=== PATIENT | male | born 1995 | race Caucasian/White ===

== ENCOUNTER 2018-07-23 21:45 | Emergency (ER) | payer MEDICAID ==
[2018-07-23] MEDS ORDERED: ONDANSETRON 4 MG/2 ML VIAL ONE (21:51)
[2018-07-23] MEDS ORDERED: NS 1,000 ML IV ONE ×2 (21:57→22:32)
[2018-07-23] MEDS ORDERED: ONDANSETRON 4 MG/2 ML VIAL IVP ONE ×2 (21:57→22:49)
[2018-07-23 22:19] LABS: PLATELET COUNT 284 10^3/uL (150-400)
--- NOTE | 2018-07-23 22:38 | EDPHY ---
H & P Stated Complaint: abd pain, N/V, RLQ Time Seen by Provider: 07/23/18 22:18 HPI/ROS: HPI The patient presents with abdominal pain, nausea, vomiting, diarrhea. For the last 2 weeks patient has had intermittent sharp right-sided abdominal and flank pain which has come and gone and not cause him much distress. At noon today he had a large meal and then about 4 hr later developed diarrhea which she describes as loose stool. The diarrhea became more frequent occurring every few minutes and then he began to vomit. His diarrhea became bloody this evening and this was concerning to him so he comes into the emergency department. He does have worsening of this right-sided sharp abdominal pain which he has been dealing with for the last 2 weeks. The pain has been nearly constant and moderate in severity. He does not have any dysuria or hematuria. He has no prior history of similar symptoms.. REVIEW OF SYSTEMS 10 systems were reviewed and negative with the exception of the elements mentioned in the history of present illness. PMHx: Healthy, history of asthma Soc Hx: College student, here with friends and parents PHYSICAL General Appearance: Alert, no distress Eyes: Pupils equal and round no pallor or injection ENT, Mouth: Mucous membranes dry Respiratory: There are no retractions, lungs are clear to auscultation Cardiovascular: Tachycardic rate and regular rhythm Gastrointestinal: Abdomen is soft and tender in the right upper and lower quadrants without rebound or guarding, no masses, bowel sounds normal Neurological: A&O, moves all extremities Skin: Warm and dry, no rashes Musculoskeletal: Neck is supple non tender Extremities: symmetrical, full range of motion Psychiatric: Patient is oriented X 3, there is no agitation Source: Patient Exam Limitations: No limitations - Personal History Current Tetanus Diphtheria and Acellular Pertussis (TDAP): Yes - Medical/Surgical History Hx Asthma: Yes Hx Chronic Respiratory Disease: No Hx Diabetes: No Hx Cardiac Disease: No Hx Renal Disease: No Hx Cirrhosis: No Hx Alcoholism: No Hx HIV/AIDS: No Hx Splenectomy or Spleen Trauma: No Other PMH: hemotocrosis - Social History Smoking Status: Never smoked Constitutional: Initial Vital Signs Temperature (C) 36.4 C 07/23/18 21:48 Heart Rate 94 07/23/18 21:48 Respiratory Rate 24 H 07/23/18 21:48 Blood Pressure 125/75 H 07/23/18 21:48 O2 Sat (%) 97 07/23/18 21:48 O2 Delivery Mode Room Air Allergies/Adverse Reactions: aspirin Allergy (Verified 07/23/18 21:47) Home Medications: Medication Instructions Recorded NK [No Known Home Meds] 07/23/18 Medical Decision Making - Diagnostics Imaging Results: CT abdomen pelvis demonstrates mild splenomegaly, mesenteric adenitis, discussed with Dr. Garcia of Radiology. Differential Diagnosis: 22-year-old male who presents with nausea, vomiting, bloody diarrhea associated with right-sided abdominal pain for the last 1 day. Differential diagnosis includes appendicitis, gastroenteritis, colitis, AVM, inflammatory bowel disease. Plan for IV fluids, antiemetics, basic labs, CT scan abdomen pelvis. After receiving IV fluids and antiemetics, the patient felt much better on reassessment. Labs did reveal a fairly profound leukocytosis of 21,000. He had ongoing tenderness on exam and thus we proceeded with CT scan of abdomen pelvis. CT demonstrated no appendicitis, patient does have mesenteric adenitis and mild splenomegaly. No clear causes of his symptoms are present. However, given he is feeling much better, I feel he is suitable for discharge. He was able to p. O. Challenge without any difficulty. He will be discharged home with instructions for further care. - Data Points Laboratory Results: Laboratory Results 07/23/18 22:00 07/23/18 22:00 Medications Given: Discontinued Medications Sodium Chloride (Ns) 1,000 mls @ 0 mls/hr IV ONCE ONE; Wide Open PRN Reason: Protocol Stop: 07/23/18 21:58 Last Admin: 07/23/18 21:58 Dose: 1,000 mls Sodium Chloride (Ns) 1,000 mls @ 0 mls/hr IV EDNOW ONE; Wide Open PRN Reason: Protocol Stop: 07/23/18 22:33 Last Admin: 07/23/18 22:47 Dose: 1,000 mls Ondansetron HCl (Zofran) 4 mg IVP EDNOW ONE Stop: 07/23/18 21:58 Last Admin: 07/23/18 21:58 Dose: 4 mg Ondansetron HCl (Zofran) 4 mg IVP EDNOW ONE Stop: 07/23/18 22:50 Last Admin: 07/23/18 22:50 Dose: 4 mg Ondansetron HCl (Zofran Odt 4 Mg Prepack#2) 1 btl RAF EDNOW ONE Stop: 07/24/18 00:16 Last Admin: 07/24/18 00:27 Dose: 1 btl Departure - Departure Disposition: Home, Routine, Self-Care Clinical Impression: Bloody diarrhea Abdominal pain Qualifiers: Abdominal location: right lower quadrant Qualified Code(s): R10.31 - Right lower quadrant pain Vomiting Qualifiers: Vomiting type: unspecified Vomiting Intractability: non-intractable Nausea presence: with nausea Qualified Code(s): R11.2 - Nausea with vomiting, unspecified Condition: Good Instructions: Ondansetron (By mouth), Acute Nausea and Vomiting (ED), Acute Diarrhea (ED) Additional Instructions: It appears that you have a mild infection of your intestines causing you to feel this way. You should be better within the next 24-48 hours. 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 Please return to the ER if your worse in any way. Referrals: MARICARMEN PATEL [Other] - As per Instructions Harlan Cedillo MD [Medical Doctor] - As per Instructions
[2018-07-23] MEDS ORDERED: IOHEXOL 300 mgI/ML (OMNIPAQUE) 150 ML BTL IV ONE (23:06)
[2018-07-24] MEDS ORDERED: ONDANSETRON 4MG PREPACK#2 BTL TAKEHOME ONE (00:15)
[2018-07-24 00:37] VITALS: BP 122/65
== END 2018-07-24 00:37 | disposition home or self-care (01) ==
DX: R10.31 Right lower quadrant pain (principal); R11.2 Nausea with vomiting, unspecified; R19.7 Diarrhea, unspecified; E86.9 Volume depletion, unspecified
CPT/HCPCS: 96374; J2405; Q9967